=== PATIENT | female | born 1985 | race Caucasian/White ===

== ENCOUNTER 2019-01-10 15:30 | Observation (INO) | payer OTHER ==
[~2019-01-10] VITALS: Ht 170.2 cm; Wt 112.5 kg
[2019-01-10] MEDS ORDERED: NIFE60TA71 PO (16:12)
[2019-01-10] MEDS ORDERED: PREN1TAB80 PO (16:12)
[2019-01-10] MEDS ORDERED: ASPI-556 PO (16:13)
[2019-01-10 18:11] VITALS: BP 144/75
== END 2019-01-10 21:05 | disposition home or self-care (01) ==
LOC: 4S 15:30
PROVIDERS: ADMIT Obstetrics & Gynecology; ATTEND Obstetrics & Gynecology
DX: O26.892 Other specified pregnancy related conditions, second trimester (principal); R10.2 Pelvic and perineal pain; Z3A.26 26 weeks gestation of pregnancy; W19.XXXA Unspecified fall, initial encounter; Y93.89 Activity, other specified; Y92.89 Other specified places as the place of occurrence of the external cause; Y99.8 Other external cause status
CPT/HCPCS: 76815; G0378